=== PATIENT | female | born 1995 | race Two or more races ===

== ENCOUNTER 2024-05-05 15:16 | Outpatient (CLI) | payer OTHER | END 2024-05-05 15:18 | disposition home or self-care (01) | LOC: PRENATAL 15:16 | PROVIDERS: ATTEND Obstetrics & Gynecology Maternal & Fetal Medicine | DX: O44.00 Complete placenta previa NOS or without hemorrhage, unspecified trimester (principal); Z3A.22 22 weeks gestation of pregnancy ==

== ENCOUNTER → 2024-07-14 12:08 | Outpatient (CLI) | payer OTHER | END | disposition home or self-care (01) | LOC: PRENATAL 12:08 | PROVIDERS: ATTEND Obstetrics & Gynecology Maternal & Fetal Medicine | DX: O26.849 Uterine size-date discrepancy, unspecified trimester (principal); O36.8199 Decreased fetal movements, unspecified trimester, other fetus; Z3A.32 32 weeks gestation of pregnancy ==

== ENCOUNTER 2024-08-30 06:28 | Inpatient (IN) | payer OTHER ==
[~2024-08-30] VITALS: Ht 165.1 cm; Wt 76.7 kg
[2024-08-30 07:27] VITALS: BP 119/80; BP 124/79
[2024-08-30] MEDS ORDERED: PRENATAL TABLE1 EAC4 PO (08:07)
[2024-08-30 08:56] LABS: BASO % 0.6 % (0.1-1.2); EOS # 0.03 (0.04-0.54); EOS % 0.4 % (0.7-7.0); HEMATOCRIT 39.1 % (34.1-44.9); HEMOGLOBIN 13.6 g/dL (11.2-15.7); LYMPH # 1.52 (1.18-3.74); LYMPH % 21.4 % (19.3-53.1); MEAN CORPUSCULAR HEMOGLOBIN 34.5 pg (25.6-32.2); MONO % 9.9 % (4.7-12.5); NEUT # 4.74 (1.56-6.13); NEUT % 66.9 % (34.0-71.1); PLATELET COUNT 206 K/uL (163-369); RED BLOOD COUNT 3.94 M/uL (3.93-5.22); RED CELL DISTRIBUTION WIDTH 12.6 % (11.6-14.4)
[2024-08-30 08:59] LABS: URINE APPEARANCE Clear; URINE BILIRRUBIN Negative (NEGATIVE); URINE BLOOD Negative; URINE COLOR Yellow; URINE GLUCOSE Negative (NEGATIVE); URINE KETONE Negative (NEGATIVE); URINE LEUKOCYTE Small; URINE NITRATE Negative; URINE PROTEIN Negative (NEGATIVE); URINE UROBILINOGEN 0.2 E.U./dl
[2024-08-30 09:01] LABS: URINE BACTERIA 604.6 uL (0.0-1933); URINE EPITHELIAL CELLS 27.6 uL (0.0-38.8); URINE RBC 21.5 uL (0.0-20.8); URINE WBC 54.6 uL (0.0-23.2)
[2024-08-30 09:25] LABS: INR < 0.93; PARTIAL THROMBOPLASTIN TIME 24.1 SECONDS (22.0-34.0)
[2024-08-30 12:00] VITALS: BP 111/77
[2024-08-30] MEDS ORDERED: OXYTOCIN 20 UNITS/500ML RL PIGGYBAG IV SCH (12:00)
[2024-08-30 15:46] VITALS: BP 125/78
[2024-08-30] MEDS ORDERED: OXYTOCIN 20 UNITS/1000ML RL PIGGYBAG IV ONE (18:19)
[2024-08-30] MEDS ORDERED: LIDOCAINE HCL 1% 10ML VIAL ONE (18:19)
[2024-08-30] MEDS ORDERED: CHLORHEXIDINE GLUCONATE 120 ML BOTTLE TOP ONE ×2 (18:19→19:30)
[2024-08-30] MEDS ORDERED: ERYTHROMYCIN BASE OPHT 1GM EACH TUBE OP ONE (18:19)
[2024-08-30] MEDS ORDERED: ACETAMINOPHEN 500 MG GEL..CAP PO PRN (19:30)
[2024-08-30] MEDS ORDERED: OXYTOCIN 1,000 ML IV SCH (19:30)
[2024-08-30 21:00] VITALS: BP 120/77
[2024-08-31] VITALS: BP 117/77
[2024-08-31 00:18] LABS: BASO % 0.2 % (0.1-1.2); HEMATOCRIT 34.4 % (34.1-44.9); HEMOGLOBIN 12.3 g/dL (11.2-15.7); LYMPH # 1.07 (1.18-3.74); LYMPH % 7.7 % (19.3-53.1); MEAN CORPUSCULAR HEMOGLOBIN 35.4 pg (25.6-32.2); MONO % 7.9 % (4.7-12.5); NEUT # 11.62 (1.56-6.13); NEUT % 83.7 % (34.0-71.1); PLATELET COUNT 187 K/uL (163-369); RED BLOOD COUNT 3.47 M/uL (3.93-5.22); RED CELL DISTRIBUTION WIDTH 12.5 % (11.6-14.4)
[2024-08-31] MEDS ORDERED: AMPICILLIN SODIUM 1,000 MG VIAL IV SCH (02:00)
[2024-08-31 08:54] VITALS: BP 114/73
[2024-08-31] MEDS ORDERED: PNV,CALCIUM 72/IRON/FOLIC ACID 1 TAB TABLET PO SCH (09:00)
[2024-08-31 12:58] VITALS: BP 105/67
[2024-08-31 15:59] VITALS: BP 114/76
[2024-09-01 01:01] VITALS: BP 115/78
[2024-09-01 09:01] VITALS: BP 118/68
== END 2024-09-01 15:25 | disposition home or self-care (01) | DRG 807 ==
LOC: LDR 06:28 → OB/GYN 19:44
PROVIDERS: ADMIT Obstetrics & Gynecology; ATTEND Obstetrics & Gynecology
PROC: 10E0XZZ Delivery of Products of Conception, External Approach (ICD-10-PCS; principal; 2024-08-30)
PROC: 0W8NXZZ Division of Female Perineum, External Approach (ICD-10-PCS; 2024-08-30)
PROC: 4A1HXCZ Monitoring of Products of Conception, Cardiac Rate, External Approach (ICD-10-PCS; 2024-08-30)
DX: O80 Encounter for full-term uncomplicated delivery (principal); Z37.0 Single live birth; Z3A.39 39 weeks gestation of pregnancy